=== PATIENT | female | born 1985 | race Caucasian/White ===

== ENCOUNTER 2016-05-18 09:40 | Emergency (ER) | payer OTHER ==
[~2016-05-18] VITALS: Ht 165.1 cm; Wt 81.6 kg
[2016-05-18 09:52] VITALS: BP 124/80
--- NOTE | 2016-05-18 10:37 | NUR ---
PT AMBULATED TO BED 6 AT THIS TIME.
--- NOTE | 2016-05-18 10:37 | NUR ---
Rob grayson in [facility] - 05/18/16 at 1038 by [facility] PT AMBULATED TO BED 6 AT THIS TIME.
--- NOTE | 2016-05-18 10:39 | NUR ---
30F BIB SELF C/O URINARY FREQUENCY/HEMATURIA X YESTERDAY; PT C/O LOWER ABDOMINAL PAIN, CRAMPING, RADIATES TO LOWER BACK, 4/10 X YESTERDAY; ABDOMEN SOFT, NON-TENDER, ACTIVE BOWEL SOUNDS X 4 QUADRANTS; PT STATES TOOK MOTRIN W/ TEMPORARY RELIEF OF PAIN; PT STATES NO BURNING ON URINATION, BUT STATES "IT HURTS AT THE END WHEN I PEE"; A&OX4, BL LUNG SOUNDS CLEAR, RR EVEN/UNLABORED, SKIN IS WARM/DRY/INTACT AT THIS TIME; PT DENIES N/V/D AT THIS TIME; STEADY GAIT; PT RESTING IN BED W/ HOB ELEVATED AND IN LOWEST POSITION; ER MD MADE AWARE OF STATUS. WILL CONTINUE TO MONITOR.
--- NOTE | 2016-05-18 11:43 | NUR ---
Patient appears to be resting comfortably in bed. Vital Signs within normal limits. Respirations even and unlabored. WILL CONTINUE TO MONITOR.
[2016-05-18 11:48] VITALS: BP 111/72
--- NOTE | 2016-05-18 11:48 | NUR ---
Patient discharged with v/s stable. Written and verbal after care instructions given and explained. Patient alert, oriented and verbalized understanding of instructions. Ambulatory with steady gait. All questions addressed prior to discharge. ID band removed. Patient advised to follow up with PMD. Rx of CEPHALEXIN 500MG & PYRIDIUM 200MG given. Patient educated on indication of medication including possible reaction and side effects. Opportunity to ask questions provided and answered.
== END 2016-05-18 11:48 | disposition home or self-care (01) ==
LOC: MED 09:40
DX: N39.0 Urinary tract infection, site not specified (principal); R03.0 Elevated blood-pressure reading, without diagnosis of hypertension

== ENCOUNTER 2017-05-31 12:30 | Emergency (ER) | payer OTHER ==
[~2017-05-31] VITALS: Ht 165.1 cm; Wt 81.6 kg
--- NOTE | 2017-05-31 13:08 | NUR ---
PT AMBULATES TO CHAIR A
[2017-05-31 13:09] VITALS: BP 125/84
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
--- NOTE | 2017-05-31 13:17 | NUR ---
DR CARRANZA EVALUATING PT.
[2017-05-31 13:50] VITALS: BP 126/78
== END 2017-05-31 13:50 | disposition home or self-care (01) ==
LOC: MED 12:30
DX: S63.601A Unspecified sprain of right thumb, initial encounter (principal); W22.8XXA Striking against or struck by other objects, initial encounter; Y93.89 Activity, other specified; Y92.89 Other specified places as the place of occurrence of the external cause; Y99.8 Other external cause status
CPT/HCPCS: 73140; 99284

== ENCOUNTER 2017-08-30 11:12 | Emergency (ER) | payer OTHER ==
[~2017-08-30] VITALS: Ht 165.1 cm; Wt 83.9 kg
[2017-08-30 11:18] VITALS: BP 111/73
[2017-08-30] MEDS: IBUPROFEN 400 MG TAB PO ONE (11:47)
[2017-08-30 11:50] VITALS: BP 111/73
== END 2017-08-30 11:50 | disposition home or self-care (01) ==
LOC: MED 11:12
DX: M62.830 Muscle spasm of back (principal); R42 Dizziness and giddiness
CPT/HCPCS: 81002; 81025; 99282

== ENCOUNTER 2017-09-22 13:18 | Emergency (ER) | payer OTHER ==
[~2017-09-22] VITALS: Ht 165.1 cm; Wt 82.8 kg
[2017-09-22 13:23] VITALS: BP 132/86
--- NOTE | 2017-09-22 13:35 | NUR ---
AFTER PROVIDING URINE SAMPLE PT AMBULATES TO BED 10, REPORT GIVEN TO BENJAMIN ALCALA
--- NOTE | 2017-09-22 13:40 | NUR ---
PATIENT PRESENTS TO ED WITH COMPLAINTS OF LOWER BACK PAIN AND LEFT BREAST PAIN X 1 DAY. PATIENT STATES LOW BACK PAIN AND LEFT BREAST TENDERNESS STARTED SUDDENLY YESTERDAY. PATIENT DENIES BREAST DISCHARGE. DENIES N/V/D; SKIN IS PINK/WARM/DRY; AAOX4 WITH EVEN AND STEADY GAIT; LUNGS CLEAR BL; HR EVEN AND REGULAR; PT DENIES ANY FEVER, CP, SOB, OR COUGH AT THIS TIME; PATIENT STATES PAIN OF 8/10 AT THIS TIME; VSS; PATIENT POSITIONED FOR COMFORT; HOB ELEVATED; BEDRAILS UP X1; BED DOWN. ER MD MADE AWARE OF PT STATUS.
--- NOTE | 2017-09-22 15:37 | NUR ---
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
--- NOTE | 2017-09-22 16:31 | NUR ---
Patient discharged with v/s stable. Written and verbal after care instructions given and explained. Patient alert, oriented and verbalized understanding of instructions. Ambulatory with steady gait. All questions addressed prior to discharge. ID band removed. Patient advised to follow up with PMD. Rx of IBUPROFEN AND FLEXERIL given. Patient educated on indication of medication including possible reaction and side effects. Opportunity to ask questions provided and answered.
[2017-09-22 16:35] VITALS: BP 121/80
== END 2017-09-22 16:31 | disposition home or self-care (01) ==
LOC: MED 13:18
DX: N60.12 Diffuse cystic mastopathy of left breast (principal)
CPT/HCPCS: 99283